=== PATIENT | female | born 1945 | race Caucasian/White ===

== ENCOUNTER 2016-04-24 15:33 | Inpatient (IN) | payer OTHER ==
[~2016-04-24] VITALS: Ht 165.1 cm; Wt 49.9 kg
--- NOTE | ~2016-04-24 | D ---
[facility] [place] [address] DISCHARGE SUMMARY Name: JOYCE JHA Room #: 511-P [facility] IN M.R.#: [id number] Admission: 04/24/16 Attend Phys: Alvaro Zimmerman MD Discharge: 05/03/16 Date of : 47 Report #: [id number] THIS REPORT FOR: //name// CC: Alvaro Álvarez DATE OF SERVICE: 05/03/2016 ADDENDUM The patient's therapy was noted to be on hold on 04/30. On 05/01, the patient refused. On 05/02, the therapy was on hold in the morning and the patient refused in the afternoon. The patient was refusing some of her therapies and she ended up being transferred to a halfway facility. The actual discharge dictation was completed by Edilma Salazar. <ELECTRONICALLY SIGNED> By: Alvaro Zimmerman MD 05/30/16 1342 1010 1036 Alvaro Zimmerman MD /nt
--- NOTE | ~2016-04-24 | HC ---
[facility] [place] [address] CONSULTATION Name: JOYCE JHA Room #: 511-P [facility] IN M.R.#: [id number] Admission: 04/24/16 Attend Phys: Alvaro Zimmerman MD Discharge: Date of : 47 Report #: [id number] THIS REPORT FOR: //name// CC: Alvaro Álvarez INFECTIOUS DISEASE CONSULTATION HISTORY OF PRESENT ILLNESS: A 70-year-old white woman is on Infectious Disease consultation with fever. The patient was being followed by me at [facility] for left chest wound post breast reconstruction, the last culture was negative. The patient at [place] was having complaint of intermittent abdominal pain, right hip pain secondary to recent open reduction and internal fixation. On the date of consult, patient was febrile with a temperature of 101 despite being on Diflucan for funguria. The patient has had a stool for Clostridium difficile toxin that returned positive and she was started on Flagyl. The patient denies having diarrhea and actually having constipation and she tells me now that she is having urinary tract infection because she is having lower abdominal discomfort which she has had for a long period of time and had failed to respond to multiple modalities of treatment at [facility]. PAST MEDICAL HISTORY: Status post mastectomy with breast reconstruction with nonhealing wound, left posterior chest; history of fracture, right hip, requiring open reduction internal fixation at [facility] by Dr. Brice. Episode of gastrointestinal bleeding requiring another transfer to [facility] and she was found to have some gastritis. Previous gastrointestinal bleeding secondary to vascular malformation. Anemia of chronic disease. Coronary artery disease. Irritable bowel syndrome. Fibromyalgia. Previous cholecystectomy, hysterectomy, cataract surgery. DRUG ALLERGIES: MORPHINE, CEPHALEXIN, HYDROMORPHONE, ERTAPENEM. PRIOR MEDICATIONS: She had been on treatment with Diflucan, which I stopped and now on Flagyl 500 mg t.i.d., promethazine 6.25 mg q. 6 hours for chronic nausea, multivitamins, sodium bicarbonate 650 mg p.o. daily, Mirtazapine 7.5 mg p.o. daily, ascorbic acid 500 mg p.o. daily, anastrozole 1 mg p.o. daily, levothyroxine 75 mcg daily, Atrovent albuterol inhalation treatments q.i.d., furosemide 40 mg p.o. b.i.d., dicyclomine 20 mg p.o. q.i.d., zinc sulfate 220 mg p.o. t.i.d., gabapentin 100 mg t.i.d., venlafaxine 37.5 mg b.i.d., lubiprostone 24 mcg b.i.d., magnesium oxide 400 b.i.d., fluconazole 2 sprays b.i.d. nasally, hyoscyamine p.r.n., oxycodone immediate release 10-20 mg q. 4 hours p.r.n., Benadryl 25 mg q.6. h. p.r.n., diazepam 10 mg p.o. t.i.d., cyclobenzaprine 5 mg at bedtime p.r.n., txsxqmxmrt-hnka-bwayzwbb q.4h. p.r.n., sennoside 4 tablets daily, docusate p.r.n., Tylenol p.r.n. SOCIAL AND FAMILY HISTORY: See H and P and old records. [facility] [address] [facility] [place] [address] CONSULTATION Name: JOYCE JHA Room #: 511-P ADM IN M.R.#: [id number] Admission: 04/24/16 Attend Phys: Alvaro Zimmerman MD Discharge: Date of : 47 Report #: [id number] PHYSICAL EXAMINATION: GENERAL: Chronically ill-appearing woman. VITAL SIGNS: Temperature 101.6 on 04/24, afebrile thereafter, temperature 98.1, pulse 50, respirations 20, BP 125/71. HEENMT: Head normocephalic, atraumatic. Pupils reactive. Mouth: No thrush. NECK: Supple. LUNGS: Clear. Chest exam, wound, left posterior chest, clean, no signs of infection. BREASTS: Deferred, status post breast reconstruction. ABDOMEN: Soft, no masses or megaly. EXTREMITIES: Surgical scar, right hip, from an open reduction and internal fixation of hip fracture. No clubbing, cyanosis, no pretibial edema. NEUROLOGIC: Grossly within normal limits. LABORATORY DATA: Sodium 142, potassium 3.9, BUN 19, creatinine 1.1. WBC 10.5, hemoglobin 10.2, platelets 472,000. C. difficile toxin positive. Urinalysis revealed 6-15 wbc's per HPF, 1-9 bacteria per HPF. MICROBIOLOGY DATA: Blood cultures negative. Urine culture pending. ASSESSMENT: 1. Fever of undetermined source, improved, resolved. 2. Positive Clostridium difficile toxin assay, question Clostridium difficile associated colitis. 3. Status post open reduction and internal fixation of right hip fracture. 4. Chronic abdominal pain. 5. Breast cancer, status post left breast reconstruction with left chest wound with no signs of infection. 6. Fibromyalgia. 7. Coronary artery disease. SUGGESTIONS: Recommend discontinue Diflucan. Change from Flagyl to oral vancomycin 125 mg daily. The patient on polypharmacy and I just wonder if streamlining her medication regimen maybe to patient's benefit. Dr. Zimmerman, thank you for requesting my suggestions in the care of your patient. <ELECTRONICALLY SIGNED> By: Robson Hodgson MD 04/30/16 1227 1002 1127 Robson Hodgson MD /nt
--- NOTE | ~2016-04-24 | H ---
[facility] [place] [address] HISTORY AND PHYSICAL Name: JOYCE JHA Room #: 511-P [facility] IN M.R.#: [id number] Admission: 04/24/16 Attend Phys: Alvaro Zimmerman MD Discharge: 05/03/16 Date of : 46 Report #: [id number] THIS REPORT FOR: //name// CC: Alvaro Álvarez DATE OF SERVICE: 04/25/2016 HISTORY OF PRESENT ILLNESS: The patient is a 70-year-old white female who was admitted to [facility] Inpatient Acute Rehab pierce from [facility]. She has a complex history of a left mastectomy for breast cancer and underwent reconstruction with split-thickness skin graft which unfortunately failed. She was treated at [place] for wound care management and was noted to have a right hip intertrochanteric fracture on 03/08/2016. She was transferred over to [facility] and underwent open reduction and internal fixation and was limited to nonweightbearing. She was transferred back to [place] for further medical and wound care management. During her stay at [place], she developed pulmonary edema and acute respiratory failure and was transferred to the ICU, diuresed with the respiratory failure resolving poor. Her course was further complicated by a gastrointestinal bleed, passing blood clots per rectum. She was again transferred to [facility] emergently. She had a video capsule study, which showed no AV malformation or other sources of bleeding. She has a diagnosis of irritable bowel syndrome. She was transferred back to [place] for further medical management. She continues at nonweightbearing, toe touch weightbearing, right lower extremity. The patient was improving medically. She had some pulmonary infiltrates that were improving. She was noted to have a DVT, requiring inferior vena cava filter involving the right lower extremity. Her overall functional status improved and she was felt to be ready for acute inpatient rehabilitation transfer. She has now been admitted to the acute in-hospital inpatient rehabilitation pierce. PAST MEDICAL HISTORY: Includes breast cancer, restless leg syndrome, anemia, coronary artery disease, irritable bowel syndrome, GERD, fibromyalgia and osteoporosis. PAST SURGICAL HISTORY: Includes the mastectomy, breast reconstruction, hysterectomy, open cholecystectomy, cataract surgery and hip fracture surgery. FAMILY HISTORY: Noncontributory. MEDICATIONS: Please see the full medication listing. These were all individually entered into the computer system. SOCIAL HISTORY: She lives with her in [place], [place] in an apartment which does have steps. She was premorbidly independent and [facility] [address] [place] [address] HISTORY AND PHYSICAL Name: JOYCE JHA Room #: 511-P [facility] IN [facility]#: [id number] Admission: 04/24/16 Attend Phys: Alvaro Zimmerman MD Discharge: 05/03/16 Date of : 46 Report #: [id number] ambulatory, without gait aids. She and her are noted to be looking at purchasing a ranch-style house. ALLERGIES: HYDROMORPHONE and KEFLEX. REVIEW OF SYSTEMS: No complaints of chest pain, shortness of breath or abdominal discomfort. PHYSICAL EXAMINATION: GENERAL: A 70-year-old white female, no obvious distress. She does not appear in any distress at this time. She is pleasant. VITAL SIGNS: Last recorded temperature 97.6, pulse 82, respirations 18 and blood pressure 115/60. She did have T-max of 101.6. The patient had stated that she had been having these high fevers and had been given Tylenol for fever and comfort. Internal medicine will be following further regarding her overall medical issues. HEENT: Facies appeared symmetric. CHEST: Sounded clear to auscultation. CARDIAC EXAMINATION: Regular rate and rhythm. ABDOMEN: Soft, nontender and nondistended. BACK: Left upper back had a chronic-appearing wound, with dressing and packing in place. No evidence of any specific erythema. EXTREMITIES: As far as her extremity, she had the old right lateral hip incisions, which appeared to be healing. Elham were removed previously. There was no focal calf swelling. NEUROLOGIC: She had functional range of motion of the upper extremities with strength grade 4-/5. DTRs were trace to 1. Lower extremities, strength of the right lower extremity was a grade 3+ to 4-/5; left lower extremity was 4-/5. She does need assistance with basic transfers and needed some cues regarding the weightbearing precautions. ASSESSMENT: A 70-year-old white female with the following problem list: 1. Right hip intertrochanteric fracture, 03/08/2016, status post open reduction and internal fixation with nonweightbearing/toe touch weightbearing. 2. Chronic hypoxic respiratory failure, which appears to be improving. She has needed intermittent oxygen, 2 liters. 3. History of breast cancer with reconstruction surgery, post-mastectomy with split-thickness skin grafting. 4. Left flank nonhealing surgical wound, status post latissimus dorsi flap. 5. Recurrent gastrointestinal bleed, thought to be due to gastritis and colitis. She does have a noted problem list of irritable bowel syndrome. Was noted to have a negative C. diff from outside facility. 6. Moderate protein-calorie malnutrition. PLAN: The patient is admitted for acute in-hospital inpatient rehabilitation. From a post-admission physician evaluation perspective, there are no relevant [address] [address] HISTORY AND PHYSICAL Name: JOYCE JHA Room #: 511-P [facility] IN M.R.#: [id number] Admission: 04/24/16 Attend Phys: Alvaro Zimmerman MD Discharge: 05/03/16 Date of : 46 Report #: [id number] changes since the preadmission screening. Please see the above review of prior and current medical and functional conditions and comorbidities. Please see the patient's prior and current functional status. As far as risk of complications, the patient has multiple medical comorbidities as noted above. Initial plan of care involves the interdisciplinary acute inpatient rehabilitation program. The therapist will be involved and working on improving her overall functional mobility and ADLs to try to achieve an independent level so that she can return back to the home setting with her . Measurable functional goals would be for her to become modified independent at the walker level with mobility and ADLs. Prognosis is reasonably good. Estimated length of stay of probably 2-1/2 to 3 weeks or likely longer. Potential barriers would include the multiple medical comorbidities and decreased functional status. The patient meets diagnostic criteria for an acute in-hospital inpatient rehabilitation stay. She meets medical necessity criteria and has the multiple medical comorbidities as noted above. She does have appropriate tolerance for rehab and has appropriate discharge goals back to the home setting. The patient's had informed me that Dr. Brice had performed the hip surgery while she was over at [facility]. I have asked orthopedics to evaluate her as she will hopefully be at the point of progressing with her weightbearing. Wound care is also to assist regarding the wound care management issues. Internal medicine is assisting regarding her medical care. <ELECTRONICALLY SIGNED> By: Alvaro Zimmerman MD 05/14/16 1617 1403 1508 Alvaro Zimmerman MD /nt
--- NOTE | ~2016-04-24 | HC ---
[facility] [place] [address] CONSULTATION Name: JOYCE JHA Room #: 511-P ADM IN M.R.#: [id number] Admission: 04/24/16 Attend Phys: Alvaro Zimmerman MD Discharge: Date of : 46 Report #: [id number] THIS REPORT FOR: //name// CC: Alvaro Álvarez DATE OF SERVICE: 04/26/2016 PERSONAL PHYSICIAN: Alvaro Zimmerman MD CHIEF COMPLAINT: Left posterior back wound. HISTORY OF PRESENT ILLNESS: This is a 70-year-old white female who took care of at [facility] after she had been transferred from [facility] for a fracture of her right hip. The patient underwent open reduction and internal fixation of that hip fracture. While she was there, it was noted the patient had a nonhealing surgical wound on her left posterior thorax, which she had a previous skin graft. The patient had had previously a surgical repair of her breast, status post breast mastectomy. The patient then had what appears to be some type of a rotational flap performed and then a skin graft was placed over the left posterior thorax, which failed. The patient was currently receiving wound care over at [facility] and had a somewhat complicated course ended up in the ICU with respiratory failure. The patient now; however, is recently improved and has now been admitted to the acute rehab here at [facility]. I have been asked to assist in the care of the wound at this time. PAST MEDICAL HISTORY: Significant for breast cancer with restless leg syndrome, gastroesophageal reflux disease, fibromyalgia, osteoporosis, irritable bowel syndrome, and coronary artery disease. PAST SURGICAL HISTORY: Includes the mastectomy, previous breast reconstruction with what appears to be flap rotation and skin graft, which the skin graft failed; hysterectomy, cholecystectomy, cataract surgery, and a recent open reduction and internal fixation of a hip fracture. CURRENT MEDICATIONS: Multiple and I reviewed the patient's medication list. DRUG ALLERGIES: MORPHINE, KEFLEX, and DILAUDID. SOCIAL HISTORY: The patient lives at home with her and denies alcohol or drugs. FAMILY HISTORY: Not pertinent to current medical condition. REVIEW OF SYSTEMS: [facility] [address] [place] [address] CONSULTATION Name: JOYCE JHA Room #: 511-P [facility] IN M.R.#: [id number] Admission: 04/24/16 Attend Phys: Alvaro Zimmerman MD Discharge: Date of : 46 Report #: [id number] CONSTITUTIONAL: The patient denies fevers or chills. NEUROLOGIC: The patient denies any numbness or tingling in the arms or legs, but does complain of just generalized fatigue. EYES: No complaints. ENT: No complaints. CARDIAC: The patient denies chest pain, palpitations, or peripheral edema. RESPIRATORY: The patient denies shortness breath, cough or wheezes. GASTROINTESTINAL: The patient denies nausea, vomiting, or abdominal pain. GENITOURINARY: The patient denies urgency or frequency. MUSCULOSKELETAL: The patient has mild pain in her left hip. SKIN: There is a nonhealing surgical wound on the left posterior thorax. PHYSICAL EXAMINATION: VITAL SIGNS: Stable. The patient is afebrile. GENERAL: This is an alert and oriented x3, pleasant white female who is in no acute distress. HEENT: Normocephalic, atraumatic. Mucous membranes are dry. Pupils are round. NECK: Supple without JVD. BACK: Nontender. LUNGS: Clear. HEART: Regular. CHEST: Shows a surgical incision, which are well healed on the left breast with scar tissue formation. On the left posterior thorax region, there is an open wound, please see nurses notes for measurements. There is noted to be tunneling from approximately 12 o'clock to 3 o'clock at about approximately 6-7 cm, the wound itself is fairly clean and granulating with minimal to moderate amount of serosanguineous drainage. Periwound itself is otherwise intact without erythema, warmth, or signs of cellulitis. EXTREMITIES: The patient moves all extremities without difficulty. Bilateral heels are intact. NEUROLOGIC: Cranial nerves 2-12 are grossly intact. Motor and sensory grossly intact. LABORATORY DATA: White count 10.5, hemoglobin 10.2. Electrolytes within normal limits. WOUND CARE COURSE: I spoke with the patient and she states that she has just recently saw her plastic surgeon, Dr. Prajapati who states with the fact that she has now had a failed graft site, he might consider opening up this graft site and doing a further revision. While the patient is here, we will pack the graft site with Maxorb AG, cover with an ABD and changes once daily. IMPRESSION: 1. Failed graft site to the left posterior thorax. 2. Status post breast reconstruction what appears to be a flap reconstruction. 3. Status post right hip fracture with open reduction and internal fixation. [address] [address] CONSULTATION Name: JOYCE JHA Room #: 511-P ADM IN M.R.#: [id number] Admission: 04/24/16 Attend Phys: Alvaro Zimmerman MD Discharge: Date of : 46 Report #: [id number] 4. Generalized debility. PLAN: Described as above, the patient will also maximize physical and occupation therapy when she is here. The patient will also maximize her oral protein supplementation for healing. We will continue to follow the patient while she is here. I appreciate the ability to consult. <ELECTRONICALLY SIGNED> By: Yoan Jackson MD 05/02/16 1247 0917 1054 Yoan Jackson MD /nt
--- NOTE | ~2016-04-24 | EKG ---
[address] [address] ELECTROCARDIOGRAM REPORT Name: JOYCE JHA Room #: 511- ADM IN M.R.#: [id number] Admission: 04/24/16 Attend Phys: Alvaro Zimmerman MD Discharge: Date of : 46 Report #: [id number] THIS REPORT FOR: //name// [facility] Test Date: 2016-04-30 Test Time: 10:46:25 Pat Name: JOYCE JHA Department: Room: 511 Gender: F Account Liaison: Norah SHAH : 1945 Requested By: Alvaro Zimmerman Order Number: [id number] : Paul Hodgson Measurements Intervals Newell Rate: 106 P: 45 NC: 120 QRS: -8 QRSD: 78 T: 46 QT: 397 QTc: 528 Interpretive Statements Sinus tachycardia Borderline T wave abnormalities No previous ECG available for comparison Electronically Signed On 04-30-2016 17:05:42 CY[employer] SPECIALIST by Paul Hodgson [email or web address] <ELECTRONICALLY SIGNED> By: Paul Hodgson MD 04/30/16 1705 1046 1046 MD PATRICIA Lafleur
--- NOTE | ~2016-04-24 | HC ---
[facility] [place] [address] CONSULTATION Name: JOYCE JHA Room #: 511-P [facility] IN M.R.#: [id number] Admission: 04/24/16 Attend Phys: Alvaro Zimmerman MD Discharge: 05/03/16 Date of : 46 Report #: [id number] THIS REPORT FOR: //name// CC: Alvaro Álvarez DICTATED BY: Kaylin HUGHES HISTORY OF PRESENT ILLNESS: The patient is another patient to us as we have seen her at [facility] as well as here at [facility]. She is a 70-year-old white female who was admitted most recently to [facility] inpatient acute rehabilitation from [facility]. Previous to that, she was seen at [facility] by Dr. Brice and myself where she was admitted on 03/08/2016 of a fall. On 03/10/2016, a right hip TFN was performed by Dr. Jeff Brice with my assistance. At that time also, he was seen for wound care secondary to a left mastectomy with dehiscence of the surgical site. She had breast reconstruction using a clot from the left lateral wall, which dehisced and became infected while she was at [place]. She then fell while she was in the restroom at [facility] and that is when she ended up at [facility]. Eventually after recuperating from the GI bleed that she has suffered while at the hospital and a long stay at the hospital in the ICU as well, she was discharged back to [facility] and has now returned to [facility] for acute rehabilitation. The patient has had some pulmonary infiltrates that have been improving. She is noted to have a DVT requiring inferior vena cava filter involving the right lower extremity. She is also diagnosed with IBS. Currently, she is nonweightbearing, toe touch weightbearing in the right lower extremity. The patient seems to be improved medically according to her most previous notes. PAST MEDICAL HISTORY: Includes breast cancer, restless legs syndrome, anemia, CAD, IBS, GERD, fibromyalgia and osteoporosis. PAST SURGICAL HISTORY: Includes mastectomy, breast reconstruction, hysterectomy, open cholecystectomy, cataract surgery and hip fracture surgery. SOCIAL HISTORY: She used to live with her in [place], [place] in an apartment which pets. She was premorbidly independent and ambulatory without gait aids. Currently, her is looking to purchase a [employer] style house. Most recently, she has been staying at [facility]. Assessment of right lower extremity, she is neurovascularly intact in the right lower extremity with +2 dorsal pedis and +2 posterior tibialis pulse. No edema noted. Loss of muscle mass is noted in the right lower extremity; however, entire body is also weakened since her hospitalization. The patient has supple range of motion about the hip with with internal and external rotation. Incision has healed. Skin is dry and intact. Most recent pertinent labs demonstrate she has hemoglobin of 10.2, white blood [facility] [address] [place] [address] CONSULTATION Name: JOYCE JHA Room #: 511-P DIS IN M.R.#: [id number] Admission: 04/24/16 Attend Phys: Alvaro Zimmerman MD Discharge: 05/03/16 Date of : 47 Report #: [id number] cell count of 10.5, platelets 172. An x-ray of the right hip was done on 04/24/2016, 2 days ago. The x-ray demonstrated postoperative changes from the TFN and lucency along the fracture line persists. ASSESSMENT: Right hip, status post TFN with current toe touch weightbearing. PLAN: We will continue toe touch weightbearing and x-ray of the hip in 3-4 weeks to assess for further healing. Unfortunately, although it has been 6 weeks, she continues to have the fracture. I am afraid that her poor health as well as her poor nutrition have contributed to the poor healing; however, given her age, this could possibly be normal healing process. We will continue to assess her as she progresses. I believe that we can see her at our office anywhere from 3-4 weeks from now. Thank you for your consult. <ELECTRONICALLY SIGNED> By: Jeff Brice MD 05/07/16 1420 1041 1226 Jeff Brice MD /nt
--- NOTE | ~2016-04-24 | PLAN ---
[facility] [place] [address] REHAB UNIT PLAN OF CARE Name: JOYCE JHA Room #: 511-P [facility] IN M.R.#: [id number] Admission: 04/24/16 Attend Phys: Alvaro Zimmerman MD Discharge: 05/03/16 Date of : 47 Report #: [id number] THIS REPORT FOR: //name// CC: Alvaro Álvarez DATE OF SERVICE: 04/26/2016 The patient is seen back today in followup. She is in no distress. Last recorded temperature 36.7, pulse 50, respirations 20, blood pressure 125/71. The patient is alert. She is in no distress. She has been min assist with transfers. No focal calf swelling. Discussion with wound care and her wound is looking clean. Infectious disease is involved as well. Orthopedics was noted to have evaluated her right hip x-ray and the order has been placed for her to continue nonweightbearing, toe touch weightbearing at this time. She is requiring mod assist for lower extremity dressing. Bed mobility, sit to supine is min assist. ASSESSMENT: 1. Right hip intertrochanteric fracture, 03/08/2016 status post open reduction and internal fixation. 2. Chronic hypoxic respiratory failure, appears to be improving. 3. History of breast cancer with reconstruction surgery, status post mastectomy with split thickness skin grafting. 4. Left flank nonhealing surgical wound, status post latissimus dorsi flap. This is gradually improving. 5. History of recurrent gastrointestinal bleed thought to be gastritis and colitis. She is noted to have a history of irritable bowel syndrome. 6. Moderate protein-calorie malnutrition. PLAN: Overall plan of care is based on the preadmission screen, post-admission physician evaluation and information garnered from therapy assessments. 1. Estimated length of stay is probably several weeks as she is at a lower functional level. 2. Medical prognosis is reasonably good. 3. Anticipated interventions includes the interdisciplinary acute inpatient rehabilitation program with PT and OT involved. We may consider some speech therapy as well and she appears to have some decreased cognition and memory. Rehab nursing assisting regarding medication management, skin care prophylaxis as well as her skin care treatments, bowel and bladder issues, nursing education. There are multiple gis consultant physicians that are involved in her care. 4. Anticipated functional outcomes would be for her to improve as far as transfers, mobility and ADLs as well as potentially cognition so that she can return back to the home setting with her . The goal would be for the patient to become modified independent at a walker or wheelchair level. [address] [address] REHAB UNIT PLAN OF CARE Name: JOYCE JHA Room #: 511-P [facility] IN M.R.#: [id number] Admission: 04/24/16 Attend Phys: Alvaro Zimmerman MD Discharge: 05/03/16 Date of : 47 Report #: [id number] 5. Discharge destination would be back home with her . 6. Expected therapy by discipline includes PT and OT 1-1/2 hours per day each 5 days a week throughout the duration of the acute inpatient rehabilitation stay. ADDENDUM: The patient was sleeping too heavily for some physical therapy and actually missed some therapies yesterday. <ELECTRONICALLY SIGNED> By: Alvaro Zimmerman MD 05/14/16 [id number] Alvaro Zimmerman MD /nt
--- NOTE | ~2016-04-24 | HC ---
[facility] [place] [address] CONSULTATION Name: JOYCE JHA Room #: 511-P [facility] IN M.R.#: [id number] Admission: 04/24/16 Attend Phys: Alvaro Zimmerman MD Discharge: 05/03/16 Date of : 47 Report #: [id number] THIS REPORT FOR: //name// CC: Alvaro Kamarai Henri DATE OF SERVICE: 04/28/2016 NEUROBEHAVIORAL STATUS EXAM ATTENDING PHYSICIAN: Alvaro Zimmerman MD FLASH DESIGNER: Chava Scott, PhD CLINICAL PRESENTATION: The patient is a 70-year-old female admitted to the [facility] rehabilitation unit for a comprehensive inpatient rehabilitation program to improve functional mobility, activities of daily living and self-care secondary to impairment from a right hip intertrochanteric fracture. She is status post open reduction internal fixation and is with nonweightbearing to toe-touch weightbearing. Her diagnoses include chronic hypoxic respiratory failure, history of breast cancer with reconstruction surgery, post mastectomy, left nonhealing surgical wound status post latissimus dorsi flap, recurrent gastrointestinal bleed thought due to gastritis and colitis. Problems include irritable bowel syndrome and negative C. diff from outside facility and a moderate protein-calorie malnutrition. Her medications are reported to include docusate Na, bisacodyl, vancomycin, promethazine, multivitamins with minerals, sodium bicarbonate, mirtazapine, ascorbic acid, anastrozole, levothyroxine, albuterol, furosemide, dicyclomine hydrochloride, zinc sulfate, gabapentin, guaifenesin, venlafaxine, lubiprostone, magnesium oxide, fluticasone, hyoscyamine sulfate, oxycodone immediate release p.r.n., 20 mg and oxycodone immediate release 10 mg p.r.n., diphenhydramine 25 mg, diazepam 10 mg t.i.d., cyclobenzaprine 5 mg p.r.n., butalbital 1 tab q. 4h. p.r.n., sennosides and acetaminophen. For a complete summary of her medical condition, history and medications please refer to her medical records. Neuropsychological consultation was requested to provide assistance in the assessment of cognitive and emotional status and to provide recommendations and services. Prior to this most recent deterioration in her medical condition she was living with her in their home. The patient has an involved daughter who provides assistance with activities that are necessary to manage community dwelling. She reports having had four children. The patient is a high school graduate. 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 She does not report a history of treatment for anxiety or depression[place] [address] CONSULTATION Name: JOYCE JHA Room #: 511-P [facility] IN M.R.#: [id number] Admission: 04/24/16 Attend Phys: Alvaro Zimmerman MD Discharge: 05/03/16 Date of : 47 Report #: [id number] indicate a history of alcohol abuse. TECHNIQUES UTILIZED: Clinical interview, review of medical records, staff consultation and behavioral observation, mini mental status exam 2 brief version and attempted family interview. EXAMINATION FINDINGS: The patient was alert, but only partially cooperative with the assessment. She complained of pain and indicated desire to be left alone. She has a poor appetite. The patient has decreased insight into symptoms of emotional distress as well as diminished cognitive function. Her mood appears very depressed and irritable, which she denies both. She does acknowledge increased anxiety. Sleep and appetite are reported as poor. Her performance on the mini mental status exam 2 was extremely low with a raw score of 10 of 16. She was 3/3 for initial registration, 3/5 for orientation to time and 4/[address]. She was 0/3 for immediate recall of 3 items after a brief time delay and distraction. Because of decreased endurance and lack of engagement with an assessment along with her complaints of pain further evaluation was not completed. DIAGNOSTIC IMPRESSION: Neurocognitive disorder -- extent to be determined, with intermittent irritability -- likely mild to moderate. Depressive disorder, unspecified with anxiety. RECOMMENDATIONS: The patient would benefit from continued use of an antidepressant. Consider increasing the dose of current antidepressant medications, Remeron and venlafaxine. Verbal praise and complements about participation in therapies and taking a more active approach towards her rehabilitation would also be helpful. The use of relaxation techniques and psychological pain management strategies may also be of benefit to assist in her overall adjustment. I attempted to reach family, but was unsuccessful at this time. Thank you very much for allowing me to provide the consultation on this patient. <ELECTRONICALLY SIGNED> By: Chava Scott, PhD 05/04/16 [id number] [id number] Chava Scott, PhD /nt
[2016-04-24 18:42] VITALS: BP 110/69
[2016-04-24 23:43] VITALS: BP 110/60
[2016-04-25 02:09] LABS: HEMOGLOBIN 10.2 gm/dL (12.0-15.0); MCH 28.5 pg (26.0-34.0); MCHC 31.9 % (28.0-37.0); MCV 89.2 fL (80.0-100.0); RBC 3.58 mil/uL (4.20-5.00); RDW 16.7 % (10.5-14.5); WBC 10.5 thou/uL (4.0-11.0)
[2016-04-25 02:22] LABS: CALCIUM 8.7 mg/dL (8.5-10.1); CREATININE 1.1 mg/dL (0.6-1.3); POTASSIUM 3.9 mmol/L (3.5-5.1)
[2016-04-25 03:24] VITALS: BP 115/60
[2016-04-25 06:40] LABS: URINE BILIRUBIN NEGATIVE (Negative); URINE BLOOD NEGATIVE (Negative); URINE COLOR YELLOW; URINE GLUCOSE-RANDOM* NEGATIVE (Negative); URINE KETONES NEGATIVE (Negative); URINE LEUKOCYTES-REFLEX 1+ (Negative); URINE PROTEIN (DIPSTICK) NEGATIVE (Negative); URINE UROBILINOGEN 0.2 E.U./dl (0.2-1.0)
[2016-04-25 07:13] LABS: CASTS None Seen /LPF (None Seen); CRYSTALS None Seen /LPF (None Seen); SQUAMOUS 0-3 Few /LPF (0-3); URINE RBC None Seen /HPF (0-2); URINE WBC-REFLEX 6-15 Few /HPF (0-5)
[2016-04-25 16:15] VITALS: BP 120/60
[2016-04-26 03:51] VITALS: BP 125/71
[2016-04-26] MEDS ORDERED: ACYCLOVIR 400400 MG PO (12:59)
[2016-04-26] MEDS ORDERED: WELLBUTRIN 100100 MG PO (13:00)
[2016-04-26] MEDS ORDERED: CARVEDILOL3.125 MG PO (13:00)
[2016-04-26] MEDS ORDERED: VALIUM5 MG PO (13:01)
[2016-04-26] MEDS ORDERED: BENTYL 20 MG TA20 M1 PO (13:01)
[2016-04-26] MEDS ORDERED: ANASTROZOLE1 MG PO (13:02)
[2016-04-26] MEDS ORDERED: GABAPENTIN 100100 MG PO (13:02)
[2016-04-26] MEDS ORDERED: LASIX 20 MG TAB20 MG PO (13:02)
[2016-04-26] MEDS ORDERED: LEVOTHYROXINE0.05 MG PO (13:03)
[2016-04-26] MEDS ORDERED: VENLAFAXIN75 MG/1 T2 PO (13:03)
[2016-04-26] MEDS ORDERED: POTASSIUM20 PO (13:04)
[2016-04-26] MEDS ORDERED: MIRAPEX0.125 MG PO (13:04)
[2016-04-26] MEDS ORDERED: VENTOLIN HFA 1818 GM INH (13:05)
[2016-04-26] MEDS ORDERED: COZAAR 25 MG TA25 M1 PO (13:05)
[2016-04-26] MEDS ORDERED: PROBIOTIC1 EAC1 PO (13:06)
[2016-04-26] MEDS ORDERED: PERCOCET PO (13:06)
[2016-04-26] MEDS ORDERED: REFRESH OPTIVE1 EACH OP (13:07)
[2016-04-26] MEDS ORDERED: CITRACAL + D31 EACH PO (13:08)
[2016-04-26] MEDS ORDERED: OCUVITE EYE +1 EACH PO (13:08)
[2016-04-26] MEDS ORDERED: PHAZYME250 MG PO (13:09)
[2016-04-26 15:58] VITALS: BP 130/69
[2016-04-27 03:16] VITALS: BP 111/63
[2016-04-28 06:26] VITALS: BP 112/62
[2016-04-28 16:00] VITALS: BP 98/62
[2016-04-28 20:30] VITALS: BP 110/80
[2016-04-29 05:59] VITALS: BP 100/65
[2016-04-29 16:44] VITALS: BP 100/56
[2016-04-29 21:33] VITALS: BP 125/60
[2016-04-30 06:02] LABS: BASOPHILS 1.1 % (0.0-2.0); EOSINOPHILS 6.9 % (0.0-3.0); HEMATOCRIT 34.4 % (37.0-47.0); LYMPHOCYTES 27.5 % (24.0-44.0); MCH 28.2 pg (26.0-34.0); MCV 88.2 fL (80.0-100.0); MONOCYTES 5.6 % (1.0-8.0); PLATELET COUNT 366 thou/uL (150-400); POLYS 58.9 % (36.0-66.0); RDW 16.6 % (10.5-14.5); WBC 10.3 thou/uL (4.0-11.0)
[2016-04-30 06:08] VITALS: BP 120/60
[2016-04-30 06:08] LABS: MANUAL DIFF NO
[2016-04-30 06:18] LABS: CALCIUM 9.1 mg/dL (8.5-10.1); CREATININE 1.2 mg/dL (0.6-1.3); MAGNESIUM 2.2 mg/dL (1.8-2.4); POTASSIUM 3.6 mmol/L (3.5-5.1)
[2016-04-30 10:27] VITALS: BP 109/72
[2016-04-30 10:36] VITALS: BP 102/65
[2016-04-30 12:11] LABS: HEMATOCRIT 33.6 % (37.0-47.0); HEMOGLOBIN 10.9 gm/dL (12.0-15.0); MCH 28.4 pg (26.0-34.0); MCHC 32.3 % (28.0-37.0); RBC 3.82 mil/uL (4.20-5.00); RDW 16.5 % (10.5-14.5); WBC 11.4 thou/uL (4.0-11.0)
[2016-04-30 12:28] LABS: ANION GAP 11 mmol/L (7-16); BUN 24 mg/dL (7-18); CALCIUM 9.2 mg/dL (8.5-10.1); CHLORIDE 100 mmol/L (98-107); CO2 26 mmol/L (21-32); CREATININE 1.3 mg/dL (0.6-1.3); GLUCOSE 150 mg/dL (70-99); POTASSIUM 3.9 mmol/L (3.5-5.1); SODIUM 137 mmol/L (136-145); TROPONIN-I < 0.04 ng/mL (<0.04-0.07)
[2016-04-30 14:33] VITALS: BP 110/74
[2016-04-30 16:09] VITALS: BP 126/78
[2016-05-01 06:52] VITALS: BP 97/62
[2016-05-01 15:45] VITALS: BP 107/66
[2016-05-02 04:19] VITALS: BP 102/65
[2016-05-02 04:45] LABS: HEMATOCRIT 28.8 % (37.0-47.0); HEMOGLOBIN 9.3 gm/dL (12.0-15.0); MCH 28.1 pg (26.0-34.0); MCHC 32.4 % (28.0-37.0); MCV 86.6 fL (80.0-100.0); RBC 3.33 mil/uL (4.20-5.00); RDW 16.4 % (10.5-14.5); WBC 13.9 thou/uL (4.0-11.0)
[2016-05-02 16:00] VITALS: BP 108/69
[2016-05-02 20:10] LABS: HEMATOCRIT 28.4 % (37.0-47.0); HEMOGLOBIN 9.5 gm/dL (12.0-15.0)
[2016-05-03 02:09] LABS: HEMOGLOBIN 9.5 gm/dL (12.0-15.0)
[2016-05-03 06:06] VITALS: BP 107/73
[2016-05-03 07:57] LABS: HEMATOCRIT 29.6 % (37.0-47.0); HEMOGLOBIN 9.6 gm/dL (12.0-15.0)
[2016-05-03] MEDS ORDERED: LASIX 40 MG TAB40 M1 PO (08:22)
[2016-05-03] MEDS ORDERED: VANCOMYCIN100 MG/ML PO (08:22)
[2016-05-03 13:41] LABS: HEMATOCRIT 28.3 % (37.0-47.0); HEMOGLOBIN 9.2 gm/dL (12.0-15.0)
[2016-06-12] MEDS ORDERED: MIRAPEX0.125 MG PO (11:56)
[2016-06-15] MEDS ORDERED: TIROSINT75 MCG PO (11:10)
[2016-06-15] MEDS ORDERED: PRADAXA110 MG PO (11:10)
[2016-06-15] MEDS ORDERED: FENTANYL PA25 MCG/HR TRANSDERM (11:10)
[2016-06-15] MEDS ORDERED: HYDROCODONE-APA1 TA1 PO (11:10)
[2016-06-15] MEDS ORDERED: PROTONIX40 M1 PO (11:47)
== END 2016-05-03 18:40 | DRG 536 ==
PROVIDERS: Family Medicine; Hospitalist; Nurse Practitioner; Nurse Practitioner Acute Care; Physical Medicine & Rehabilitation
DX: S72.142A Displaced intertrochanteric fracture of left femur, initial encounter for closed fracture (principal); J96.11 Chronic respiratory failure with hypoxia; N39.0 Urinary tract infection, site not specified; A04.7 Enterocolitis due to Clostridium difficile; E44.0 Moderate protein-calorie malnutrition; Z68.1 Body mass index [BMI] 19.9 or less, adult; I82.411 Acute embolism and thrombosis of right femoral vein; I82.431 Acute embolism and thrombosis of right popliteal vein; G25.81 Restless legs syndrome; K21.9 Gastro-esophageal reflux disease without esophagitis; M81.0 Age-related osteoporosis without current pathological fracture; K58.9 Irritable bowel syndrome, unspecified; I25.10 Atherosclerotic heart disease of native coronary artery without angina pectoris; R53.81 Other malaise; D63.8 Anemia in other chronic diseases classified elsewhere; M79.7 Fibromyalgia; G31.84 Mild cognitive impairment of uncertain or unknown etiology; F32.9 Major depressive disorder, single episode, unspecified; F41.9 Anxiety disorder, unspecified; J44.9 Chronic obstructive pulmonary disease, unspecified; K29.70 Gastritis, unspecified, without bleeding; K59.00 Constipation, unspecified; G89.29 Other chronic pain; X58.XXXA Exposure to other specified factors, initial encounter; Y93.89 Activity, other specified; Y92.89 Other specified places as the place of occurrence of the external cause; Z85.3 Personal history of malignant neoplasm of breast; Y99.8 Other external cause status; Z88.8 Allergy status to other drugs, medicaments and biological substances; Z90.49 Acquired absence of other specified parts of digestive tract; Z90.710 Acquired absence of both cervix and uterus; Z88.6 Allergy status to analgesic agent; Z98.890 Other specified postprocedural states; Z88.1 Allergy status to other antibiotic agents; Z98.49 Cataract extraction status, unspecified eye; Z90.10 Acquired absence of unspecified breast and nipple
CPT/HCPCS: 10112

== ENCOUNTER → 2016-08-14 | Outpatient (CLI) | payer OTHER ==
[~2016-08-14] MED LIST: ACYCLOVIR 400400 MG PO; ANASTROZOLE1 MG PO; BENTYL 20 MG TA20 M1 PO; CARVEDILOL3.125 MG PO; CITRACAL + D31 EACH PO; COZAAR 25 MG TA25 M1 PO; FENTANYL PA25 MCG/HR TRANSDERM; GABAPENTIN 100100 MG PO; HYDROCODONE-APA1 TA1 PO; LASIX 20 MG TAB20 MG PO; LASIX 40 MG TAB40 M1 PO; LEVOTHYROXINE0.05 MG PO; MIRAPEX0.125 MG PO; OCUVITE EYE +1 EACH PO; PERCOCET PO; PHAZYME250 MG PO; POTASSIUM20 PO; PRADAXA110 MG PO; PROBIOTIC1 EAC1 PO; PROTONIX40 M1 PO; REFRESH OPTIVE1 EACH OP; TIROSINT75 MCG PO; VALIUM5 MG PO; VANCOMYCIN100 MG/ML PO; VENLAFAXIN75 MG/1 T2 PO; VENTOLIN HFA 1818 GM INH; WELLBUTRIN 100100 MG PO
== END ==
LOC: HYPER 07-22 12:07
DX: T81.31XD Disruption of external operation (surgical) wound, not elsewhere classified, subsequent encounter (principal); Z87.891 Personal history of nicotine dependence; Y83.8 Other surgical procedures as the cause of abnormal reaction of the patient, or of later complication, without mention of misadventure at the time of the procedure